=== PATIENT | female | born 1985 | race Caucasian/White ===

== ENCOUNTER 2017-02-24 11:11 | Inpatient (IN) | payer OTHER ==
[~2017-02-24] VITALS: Ht 165.1 cm; Wt 79.5 kg
[~2017-02-24 11:11] MED LIST: MOTRIN 600600 MG/TAB PO; NORCO 325 MG-51 TAB PO; PRENATAL1 TA7 PO; TUMS500 MG
[2017-04-14] VITALS (40 sets, daily range): BP systolic 86–139; BP diastolic 50–106; PULSE 80–164; TEMP 97.9–98.2
[2017-04-14] MEDS ORDERED: ZANTAC 7575 MG PO (07:33)
[2017-04-14] MEDS ORDERED: TUMS500 MG (07:34)
[2017-04-14 08:11] LABS: BASO # 0.1 (0.0-0.2); BASO % 0.6 % (0.0-2.0); EOS # 0.1 (0.0-0.7); EOS % 0.7 % (0-4.0); GRAN % 68.3 % (42.2-75.2); LYMPH # 1.8 (1.2-3.4); LYMPH % 20.8 % (20.0-51.0); MEAN CELL VOLUME 83 fl (80.0-100.0); MEAN CORPUSCULAR HGB CONC 32 g/dl (33.0-37.0); MEAN PLATELET VOLUME 10.3 fl (7.4-10.4); MONO # 0.6 (0.1-0.6); MONO % 7.1 % (1.7-9.3); PLATELET COUNT 160 K/mm3 (130-400); REDCELL DISTRIBUTION WIDTH-CV 15.1 % (11.5-14.5)
[2017-04-14 08:15] LABS: HEMOGLOBIN 10.4 g/dl (12.5-16.0); MEAN CORPUSCULAR HEMOGLOBIN 26 pg (27.0-31.0)
[2017-04-15 03:34] VITALS: BP 100/71; PULSE 72; TEMP 97.9
[2017-04-15 08:25] VITALS: BP 99/55; PULSE 92; TEMP 97.9
[2017-04-15] MEDS ORDERED: MOTRIN 800800 MG/TAB PO (09:13)
== END 2017-04-15 16:55 | disposition home or self-care (01) | DRG 775 ==
LOC: LDR 04-05 11:11 → OB 04-14 17:30
PROVIDERS: Obstetrics & Gynecology
PROC: 10E0XZZ Delivery of Products of Conception, External Approach (ICD-10-PCS; principal; 2017-04-14)
PROC: 0KQM0ZZ Repair Perineum Muscle, Open Approach (ICD-10-PCS; 2017-04-14)
DX: O48.0 Post-term pregnancy (principal); O69.81X0 Labor and delivery complicated by cord around neck, without compression, not applicable or unspecified; O70.1 Second degree perineal laceration during delivery; O66.0 Obstructed labor due to shoulder dystocia; Z3A.41 41 weeks gestation of pregnancy; Z37.0 Single live birth
CPT/HCPCS: J2210; J2405; J2590; J7120

== ENCOUNTER 2017-02-25 17:16 | Outpatient (CLI) | payer OTHER ==
[~2017-02-25] VITALS: Ht 165.1 cm; Wt 76.4 kg
[2017-02-25 17:22] VITALS: BP 149/92; PULSE 120; TEMP 97.5
[2017-02-25 17:57] LABS: COLLECTION METHOD CLEAN CATCH
[2017-02-25 18:00] VITALS: BP 121/75; PULSE 85
[2017-02-25 18:07] LABS: BASO % 0.4 % (0.0-2.0); EOS # 0.1 (0.0-0.7); EOS % 0.9 % (0-4.0); GRAN # 5.7 (1.4-6.5); GRAN % 71.3 % (42.2-75.2); LYMPH # 1.6 (1.2-3.4); MEAN CELL VOLUME 88 fl (80.0-100.0); MEAN CORPUSCULAR HGB CONC 33 g/dl (33.0-37.0); MEAN PLATELET VOLUME 10.4 fl (7.4-10.4); MONO # 0.4 (0.1-0.6); MONO % 5.4 % (1.7-9.3); PLATELET COUNT 152 K/mm3 (130-400); RED BLOOD COUNT 3.78 M/mm3 (4.10-5.30); WHITE BLOOD COUNT 7.9 K/mm3 (4.8-10.8)
[2017-02-25 18:08] LABS: HEMOGLOBIN 10.8 g/dl (12.5-16.0); MEAN CORPUSCULAR HEMOGLOBIN 29 pg (27.0-31.0)
[2017-02-25 18:09] LABS: HEMATOCRIT 33.1 % (37.0-47.0)
[2017-02-25 18:26] LABS: ADJUSTED CALCIUM 9.7 mg/dL (8.4-10.2); ALBUMIN 3.6 gm/dL (3.5-5.0); BILIRUBIN,TOTAL 0.4 mg/dL (0.0-1.0); CALCIUM 9.4 mg/dL (8.4-10.2); CREATININE, serum 0.69 mg/dL (0.52-1.25); POTASSIUM 3.5 mmol/L (3.4-5.0); TOTAL PROTEIN 6.6 gm/dL (6.4-8.2)
[2017-02-25 18:30] LABS: SQUAMOUS EPITHELIAL 0-2 /hpf; URINE BACTERIA Rare /hpf; URINE RBC None Seen /hpf; URINE WBC 0-2 /hpf
[2017-02-25 18:38] LABS: URINE APPEARANCE Clear; URINE COLOR Yellow
[2017-02-25 18:39] LABS: PH 7 (5-8); URINE BILIRUBIN Negative (NEGATIVE); URINE BLOOD Negative (NEGATIVE); URINE GLUCOSE Negative (NEGATIVE); URINE KETONE Negative (NEGATIVE); URINE LEUKOCYTE ESTERASE Negative (NEGATIVE); URINE PROTEIN(semi-quant) Negative (NEGATIVE); URINE UROBILINOGEN Negative (NEGATIVE)
[2017-02-25 18:47] LABS: AMPHETAMINE URINE NEGATIVE; BARBITURATES URINE NEGATIVE; BENZODIAZEPINES URINE NEGATIVE; BUPRENORPHINE URINE NEGATIVE; METHADONE URINE NEGATIVE; OPIATES URINE NEGATIVE; OXYCODONE URINE NEGATIVE; PHENCYCLIDINE URINE NEGATIVE; PROPOXYPHENE URINE NEGATIVE; THC CANNABINOIDS URINE NEGATIVE; TRICYCLIC ANTIDEPRESS URINE NEGATIVE
[2017-02-25 18:54] LABS: THYROID STIMULATING HORMONE 3.28 uIU/mL (0.465-4.680)
[2017-02-25 18:57] VITALS: BP 116/72; PULSE 86
== END 2017-02-25 19:05 | disposition home or self-care (01) ==
LOC: LDRO 17:16
PROVIDERS: Student in an Organized Health Care Education/Training Program
DX: O99.89 Other specified diseases and conditions complicating pregnancy, childbirth and the puerperium (principal); H53.8 Other visual disturbances; Z3A.34 34 weeks gestation of pregnancy; Z88.6 Allergy status to analgesic agent; Z88.5 Allergy status to narcotic agent; Z88.8 Allergy status to other drugs, medicaments and biological substances

== ENCOUNTER 2017-03-03 02:38 | Outpatient (CLI) | payer OTHER ==
[2017-03-03 02:55] VITALS: BP 128/87; PULSE 108; TEMP 98.2
[2017-03-03 03:47] VITALS: BP 117/72; PULSE 88
== END 2017-03-03 04:00 ==
LOC: LDRO 02:38
DX: O62.9 Abnormality of forces of labor, unspecified (principal); Z3A.35 35 weeks gestation of pregnancy

== ENCOUNTER → 2017-03-10 | Outpatient (CLI) | payer OTHER | LOC: COL.RAD 09:54 | DX: O99.513 Diseases of the respiratory system complicating pregnancy, third trimester (principal); R06.02 Shortness of breath; Z3A.36 36 weeks gestation of pregnancy ==

== ENCOUNTER 2017-03-28 20:03 | Outpatient (CLI) | payer OTHER ==
[~2017-03-28] VITALS: Ht 165.1 cm; Wt 77.3 kg
[2017-03-28 20:10] VITALS: BP 109/64; PULSE 142; TEMP 99
[2017-03-28 21:10] VITALS: PULSE 94
== END 2017-03-28 21:20 | disposition home or self-care (01) ==
LOC: LDRO 20:03
DX: O99.89 Other specified diseases and conditions complicating pregnancy, childbirth and the puerperium (principal); Z3A.38 38 weeks gestation of pregnancy

== ENCOUNTER 2017-04-01 11:52 | Outpatient (CLI) | payer OTHER ==
[~2017-04-01] VITALS: Ht 165.1 cm; Wt 72.7 kg
[2017-04-01 12:16] VITALS: BP 107/76; PULSE 112; TEMP 97.9
[2017-04-01 12:30] VITALS: PULSE 113
[2017-04-01 13:00] VITALS: PULSE 100
[2017-04-01 13:19] LABS: MEAN CELL VOLUME 84 fl (80.0-100.0); MEAN CORPUSCULAR HGB CONC 31 g/dl (33.0-37.0); MEAN PLATELET VOLUME 10.1 fl (7.4-10.4); PLATELET COUNT 161 K/mm3 (130-400); RED BLOOD COUNT 3.94 M/mm3 (4.10-5.30); REDCELL DISTRIBUTION WIDTH-CV 14.6 % (11.5-14.5)
[2017-04-01 13:21] LABS: HEMATOCRIT 33.1 % (37.0-47.0); HEMOGLOBIN 10.4 g/dl (12.5-16.0); MEAN CORPUSCULAR HEMOGLOBIN 26 pg (27.0-31.0)
[2017-04-01 13:30] VITALS: PULSE 97
[2017-04-01 13:32] LABS: ALBUMIN 3.8 gm/dL (3.5-5.0); BILIRUBIN,TOTAL 0.5 mg/dL (0.0-1.0); CALCIUM 9.9 mg/dL (8.4-10.2); CREATININE, serum 0.71 mg/dL (0.52-1.25); POTASSIUM 4.2 mmol/L (3.4-5.0); TOTAL PROTEIN 6.8 gm/dL (6.4-8.2)
[2017-04-01 13:40] LABS: TRICYCLIC ANTIDEPRESS URINE NEGATIVE
[2017-04-01 13:58] VITALS: BP 116/84; PULSE 91
[2017-04-01 14:02] LABS: THYROID STIMULATING HORMONE 3.56 uIU/mL (0.465-4.680)
[2017-04-01 14:17] LABS: BAND 32 % (0-10); LYMPHOCYTE 17 % (20.0-51.0); NEUTROPHILS 48 % (42.0-75.2); PLATELET ESTIMATE NORMAL (NORMAL)
== END 2017-04-01 14:05 | disposition home or self-care (01) ==
LOC: LDRO 11:52
PROVIDERS: Obstetrics & Gynecology
DX: O99.511 Diseases of the respiratory system complicating pregnancy, first trimester (principal); R06.02 Shortness of breath; Z3A.39 39 weeks gestation of pregnancy

== ENCOUNTER → 2017-04-29 | Outpatient (CLI) | payer OTHER ==
[~2017-04-29] MED LIST changes: +MOTRIN 800800 MG/TAB PO; +ZANTAC 7575 MG PO
== END ==
LOC: OLC 14:54
DX: Z39.1 Encounter for care and examination of lactating mother (principal); Z71.89 Other specified counseling

== ENCOUNTER 2017-09-08 13:09 | Emergency (ER) | payer OTHER ==
[~2017-09-08] VITALS: Ht 165.1 cm; Wt 65.0 kg
[2017-09-08 13:12] VITALS: BP 138/88; TEMP 98.1
[2017-09-08 14:00] LABS: BASO % 0.7 % (0.0-2.0); EOS # 0.2 (0.0-0.7); EOS % 2.9 % (0-4.0); GRAN # 3.6 (1.4-6.5); GRAN % 61.8 % (42.2-75.2); HEMATOCRIT 38.2 % (37.0-47.0); HEMOGLOBIN 13.3 g/dl (12.5-16.0); LYMPH # 1.6 (1.2-3.4); LYMPH % 27.5 % (20.0-51.0); MEAN CELL VOLUME 88 fl (80.0-100.0); MEAN CORPUSCULAR HEMOGLOBIN 31 pg (27.0-31.0); MEAN CORPUSCULAR HGB CONC 35 g/dl (33.0-37.0); MONO # 0.4 (0.1-0.6); MONO % 6.8 % (1.7-9.3); PLATELET COUNT 202 K/mm3 (130-400); RED BLOOD COUNT 4.32 M/mm3 (4.10-5.30); REDCELL DISTRIBUTION WIDTH-CV 12.1 % (11.5-14.5)
[2017-09-08 14:12] LABS: ALBUMIN 4.1 gm/dL (3.5-5.0); BILIRUBIN,TOTAL 0.4 mg/dL (0.0-1.0); CALCIUM 9.4 mg/dL (8.4-10.2); CREATININE, serum 0.73 mg/dL (0.52-1.25); MAGNESIUM 1.9 mg/dL (1.6-2.3); PHOSPHOROUS 4.1 mg/dL (2.5-4.5); POTASSIUM 4.1 mmol/L (3.4-5.0); TOTAL PROTEIN 7.4 gm/dL (6.4-8.2)
[2017-09-08 14:42] LABS: TSH w REFLEX 4.18 uIU/mL (0.465-4.680)
[2017-09-08 15:59] VITALS: PULSE 76
== END 2017-09-08 16:00 | disposition home or self-care (01) ==
LOC: COL.ER 13:09
PROVIDERS: Emergency Medicine
DX: R00.2 Palpitations (principal)

== ENCOUNTER → 2017-09-24 | Outpatient (CLI) | payer OTHER ==
[~2017-09-24] VITALS: Ht 165.1 cm; Wt 63.4 kg
[~2017-09-24] MED LIST changes: +CEFZIL500 MG PO
[2017-09-24 09:00] VITALS: BP 102/72; PULSE 80; TEMP 98.3
[2017-09-24 10:20] VITALS: BP 109/72; PULSE 79; TEMP 97.7
[2017-09-24 10:50] VITALS: BP 109/72; PULSE 79; TEMP 97.7
== END ==
LOC: COL.CAR 08:15
DX: I48.0 Paroxysmal atrial fibrillation (principal); F41.9 Anxiety disorder, unspecified; Z88.8 Allergy status to other drugs, medicaments and biological substances; Z82.49 Family history of ischemic heart disease and other diseases of the circulatory system; Z82.3 Family history of stroke
CPT/HCPCS: 27124; C1764

== ENCOUNTER 2018-12-05 07:10 | Inpatient (IN) | payer OTHER ==
[2018-12-05] VITALS (43 sets, daily range): BP systolic 100–144; BP diastolic 51–88; PULSE 79–134; TEMP 98.1–99.1
[~2018-12-05] VITALS: Ht 165.1 cm; Wt 83.2 kg
[~2018-12-05 07:10] MED LIST changes: +FIORICET 325 MG1 TA1 PO; +PROTONIX20 MG PO
[2018-12-05 08:22] LABS: HEMOGLOBIN 11.2 g/dl (12.5-16.0); MEAN CELL VOLUME 85 fl (80.0-100.0); MEAN CORPUSCULAR HEMOGLOBIN 28 pg (27.0-31.0); MEAN CORPUSCULAR HGB CONC 33 g/dl (33.0-37.0); MEAN PLATELET VOLUME 10.4 fl (7.4-10.4); PLATELET COUNT 150 K/mm3 (130-400); RED BLOOD COUNT 4.04 M/mm3 (4.10-5.30); REDCELL DISTRIBUTION WIDTH-CV 14.9 % (11.5-14.5)
[2018-12-05 08:25] LABS: HEMATOCRIT 34.2 % (37.0-47.0)
[2018-12-05 08:42] LABS: BASOPHIL 1 % (0-2); EOSINOPHIL 1 % (0-4); LYMPHOCYTE 17 % (20.0-51.0); NEUTROPHILS 75 % (42.0-75.2); PLATELET ESTIMATE NORMAL (NORMAL)
[2018-12-06 00:09] VITALS: BP 104/64; PULSE 84; TEMP 97.7
[2018-12-06 03:35] VITALS: BP 102/69; PULSE 80; TEMP 97.8
[2018-12-06 08:04] LABS: HEMATOCRIT 29.1 % (37.0-47.0); HEMOGLOBIN 9.3 g/dl (12.5-16.0)
[2018-12-06] MEDS ORDERED: IBU600 MG PO (08:07)
[2018-12-06 08:47] VITALS: BP 92/55; PULSE 79; TEMP 97.7
[2018-12-06 21:00] VITALS: BP 124/81; PULSE 89; TEMP 97.7
[2018-12-07] MEDS ORDERED: NORCO 325 MG-51 TAB PO (08:07)
[2018-12-07 09:08] VITALS: BP 97/65; PULSE 84; TEMP 97.9
== END 2018-12-07 10:55 | disposition home or self-care (01) | DRG 806 ==
LOC: LDR 07:10 → OB 07:10 → LDR 14:40 → OB 20:53
PROVIDERS: ADMIT Obstetrics & Gynecology
PROC: 10E0XZZ Delivery of Products of Conception, External Approach (ICD-10-PCS; principal; 2018-12-05)
PROC: 0KQM0ZZ Repair Perineum Muscle, Open Approach (ICD-10-PCS; 2018-12-05)
PROC: 3E033VJ Introduction of Other Hormone into Peripheral Vein, Percutaneous Approach (ICD-10-PCS; 2018-12-05)
PROC: 10907ZC Drainage of Amniotic Fluid, Therapeutic from Products of Conception, Via Natural or Artificial Opening (ICD-10-PCS; 2018-12-05)
PROC: 3E0R3BZ Introduction of Anesthetic Agent into Spinal Canal, Percutaneous Approach (ICD-10-PCS; 2018-12-05)
DX: O99.42 Diseases of the circulatory system complicating childbirth (principal); O72.1 Other immediate postpartum hemorrhage; Z37.0 Single live birth; O99.354 Diseases of the nervous system complicating childbirth; O70.1 Second degree perineal laceration during delivery; Z3A.39 39 weeks gestation of pregnancy; O99.344 Other mental disorders complicating childbirth; O99.62 Diseases of the digestive system complicating childbirth; F41.9 Anxiety disorder, unspecified; K21.9 Gastro-esophageal reflux disease without esophagitis; G43.909 Migraine, unspecified, not intractable, without status migrainosus; O75.89 Other specified complications of labor and delivery; I48.91 Unspecified atrial fibrillation; N39.3 Stress incontinence (female) (male); O99.02 Anemia complicating childbirth; D64.9 Anemia, unspecified
CPT/HCPCS: J2405; J2590; J7120

== ENCOUNTER → 2019-06-05 | Outpatient (CLI) | payer OTHER ==
[~2019-06-05] MED LIST changes: +IBU600 MG PO
== END ==
LOC: COL.RAD 05-19 14:45
DX: G43.109 Migraine with aura, not intractable, without status migrainosus (principal)

== ENCOUNTER → 2019-10-20 | Outpatient (CLI) | payer OTHER | LOC: COL.RAD 07:30 | DX: G43.109 Migraine with aura, not intractable, without status migrainosus (principal) ==

== ENCOUNTER → 2019-11-24 | Outpatient (CLI) | payer OTHER | LOC: COL.CARD 09:50 | DX: G43.109 Migraine with aura, not intractable, without status migrainosus (principal); R42 Dizziness and giddiness ==

== ENCOUNTER 2021-08-27 07:24 | Day surgery (SDC) | payer OTHER ==
[~2021-08-27] VITALS: Ht 165.1 cm; Wt 71.3 kg
[2021-08-27 08:16] VITALS: BP 117/74; PULSE 78; TEMP 98.4
[2021-08-27 09:59] VITALS: BP 105/76; PULSE 81
--- NOTE | 2021-08-27 09:59 | NUR ---
Pt returned from procedure.Dressing to chest site observed clean,dry,and intact.pt denies pain at this time.
--- NOTE | 2021-08-27 11:00 | NUR ---
Discharge instructions given to pt.pt verbalizes understanding.Pt escorted out via ambulatory.
== END 2021-08-27 11:15 ==
LOC: COL.CAR 07:24
DX: O99.411 Diseases of the circulatory system complicating pregnancy, first trimester (principal); R00.2 Palpitations; I49.3 Ventricular premature depolarization; I49.1 Atrial premature depolarization; Z45.09 Encounter for adjustment and management of other cardiac device; Z3A.13 13 weeks gestation of pregnancy; Z79.899 Other long term (current) drug therapy
CPT/HCPCS: J0690